=== PATIENT | female | born 1995 | race American Indian/Alaskan Native ===

== ENCOUNTER 2019-02-02 05:34 | Emergency (ER) | payer SELFPAY ==
[2019-02-02 09:44] LABS: Bilirubin,Urine NEG (Negative); Blood,Urine NEG (Negative); Color,Urine Yellow (Yellow); Mucus,Urine 3+ /HPF; Protein,Urine <15 mg/dL mg/dL (Negative)
[2019-02-02 09:50] LABS: HCG Qualitative,Urine Negative (Negative)
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
[2019-02-02 11:23] VITALS: BP 122/74
[2019-02-02] MEDS ORDERED: PERCOCET 5/325 PO STA (12:58)
[2019-02-02] MEDS ORDERED: PERCOCET 5/325 ONE (13:01)
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
== END 2019-02-02 14:10 | disposition home or self-care (01) ==
LOC: ED 05:34
DX: M25.552 Pain in left hip (principal); F17.200 Nicotine dependence, unspecified, uncomplicated
CPT/HCPCS: 81001; 81025

== ENCOUNTER 2019-07-22 01:16 | Emergency (ER) | payer SELFPAY ==
[2019-07-22 01:19] VITALS: BP 129/81
[2019-07-22] MEDS ORDERED: IBUPROFEN 600 MG TAB PO ONE ×2 (02:55→03:03)
== END 2019-07-22 08:31 | disposition left against medical advice (07) ==
LOC: ED 01:16
DX: M54.89 Other dorsalgia (principal); Z53.21 Procedure and treatment not carried out due to patient leaving prior to being seen by health care provider